=== PATIENT | female | born 1985 | race Caucasian/White ===

== ENCOUNTER 2023-06-25 09:21 | Emergency (ER) | payer MEDICARE, OTHER ==
[2023-06-25 09:39] VITALS: RESP 18; TEMP 98.3
--- NOTE | 2023-06-25 09:44 | ED ---
Fall HPI - General Stated Complaint: Fall Time Seen by Provider: 06/25/23 09:23 - History of Present Illness Initial Comments: The patient is a 38-year-old female with a history of alcohol abuse, opiate abuse and asthma who presents for pain after a fall last night. Patient was admitted to [facility] for alcohol and opiate rehab yesterday. She is on a Ativan regimen for withdrawals. She went to stand up out of her bed last night and her ankle locked causing her to fall forward. She hit the right frontal scalp on the ground but there is no loss consciousness. She has no hematoma or laceration noted. Patient continued to have pain in the head and her right foot and ankle this morning so was sent in for evaluation. She was given Ativan prior to arrival to emergency room. Patient has had an extensive surgery on the right ankle and foot in the past and has chronic pain from it. Patient is alert and oriented. She denies nausea vomiting or vision changes. She does not on any anticoagulation. Last drink was yesterday earlier in the day. - Related Data Allergies Allergy/AdvReac Type Severity Reaction Status Date / Time No Known Allergies Allergy Verified 06/25/23 09:36 Review of Systems ROS Statement: Those systems with pertinent positive or pertinent negative responses have been documented in the HPI. ROS Other: All systems not noted in ROS Statement are negative. General Exam - General Exam Comments Initial Comments: On my exam the patient's O2 sat is 95% on 3 L, which she she is on at home due to the "swelling and alcohol abuse". on reevaluation she is alert and oriented. I rechecked her neuro function and she is neurologically intact at this time. I did discussed admission plan with the patient due to the concern for a small cerebral hemorrhage. General appearance: alert, in no apparent distress Eye exam: Present: normal appearance, PERRL, EOMI, other (No obvious signs of trauma no hematomas noted no hemotympanum bilaterally. There is no lacerations. pupils are equal and reactive bilaterally. Negative for any Bell sign or raccoon eyes. ) Neck exam: Present: other (No tenderness on exam however C collar is in place. was removed after cleared) Respiratory exam: Present: normal lung sounds bilaterally Cardiovascular Exam: Present: normal rhythm, tachycardia GI/Abdominal exam: Present: soft Extremities exam: Present: full ROM Neurological exam: Present: alert, oriented X3 Psychiatric exam: Present: normal affect, normal mood Skin exam: Present: warm, dry Course Vital Signs 06/25/23 06/25/23 06/25/23 09:25 10:34 12:00 Temperature 98.3 F Pulse Rate 118 H 78 76 Respiratory 18 18 18 Rate Blood Pressure 125/81 122/74 126/78 O2 Sat by Pulse 87 L 99 99 Oximetry - Reevaluation(s) Reevaluation #1: 06/25/23 13:59 On my exam the patient's O2 sat is 95% on 3 L, which she she is on at home due to the "swelling and alcohol abuse". on reevaluation she is alert and oriented. I rechecked her neuro function and she is neurologically intact at this time. I did discussed admission plan with the patient due to the concern for a small cerebral hemorrhage. Reevaluation #2: 06/25/23 14:08 NIH is 0. see detailed documentation by nurse. Medical Decision Making - Medical Decision Making Was pt. sent in by a medical professional or institution (, PA, [employer], urgent care, hospital, or fdc...) When possible be specific @ -[No] Did you speak to anyone other than the patient for history (EMS, parent, family, police, friend...)? What history was obtained from this source @ -[No] Did you review nursing and triage notes (agree or disagree)? Why? @ -[I reviewed and agree with nursing and triage notes] Were old charts reviewed (outside hosp., previous admission, EMS record, old EKG, old radiological studies, urgent care reports/EKG's, fdc records)? Report findings @ -Yes old charts were reviewed Differential Diagnosis (chest pain, altered mental status, abdominal pain women, abdominal pain men, vaginal bleeding, weakness, fever, dyspnea, syncope, headache, dizziness, GI bleed, back pain, seizure, CVA, palpatations, mental health, musculoskeletal)? @ -Head injury without loss consciousness, hematoma, cerebral hemorrhage, C- spine fracture, C-spine sprain, right foot sprain, right ankle sprain, right foot fracture, right ankle fracture, fall EKG interpreted by me (3pts min.). @ -[As above] X-rays interpreted by me (1pt min.). @ -There are chronic changes to the right foot and ankle x-rays consistent with previous surgery, hardware appears to be in place in stable, no obvious fractures. CT interpreted by me (1pt min.). @ -No obvious fracture or deformity of the C-spine noted however there is a questionable cerebral hemorrhage just below the sophy on the head CT. There is no large hemorrhage noted no masses noted. Radiology report is pending for confirmation of this change and any other acute changes. U/S interpreted by me (1pt. min.). @ -[None done] What testing was considered but not performed or refused? (CT, X-rays, U/S, labs)? Why? @ -[None] What meds were considered but not given or refused? Why? @ -Patient was continued chest for something strong for pain even after she had been sleeping throughout her ER stay. I discussed with her that I would not be able to get any narcotic pain medication as she is drowsy, she has a history of abuse and we need to keep her stable with the concern for the hemorrhage and deterioration. She does understand this. Did you discuss the management of the patient with other professionals (professionals i.e. , PA, [employer], lab, RT, psych nurse, 7th grade social studies teacher, solid tire tuber machine operator, teacher, immigration officer, binder caser)? Give summary @ -I discussed patient's symptoms, CT results and transfer with attending physician Dr. James Was smoking cessation discussed for >3mins.? @ -[No] Was critical care preformed (if so, how long)? @ -[No] Were there social determinants of health that impacted care today? How? (Homelessness, low income, unemployed, alcoholism, drug addiction, transportation, low edu. Level, literacy, decrease access to med. care, halfway, rehab)? @ -Patient comes from alcohol and drug rehab and history of alcohol abuse with withdrawal. Was there de-escalation of care discussed even if they declined (Discuss DNR or withdrawal of care, Hospice)? DNR status @ -[No] What co-morbidities impacted this encounter? (DM, HTN, Smoking, COPD, CAD, Cance r, CVA, ARF, Chemo, Hep., AIDS, mental health diagnosis, sleep apnea, morbid obesity)? @ -Alcohol and drug abuse Was patient admitted / discharged? Hospital course, mention meds given and route, prescriptions, significant lab abnormalities, going to OR and other pertinent info. @ -Patient will be admitted to the hospital and transferred to [facility] for a suspected cerebral hemorrhage. She will require repeat head CT to further evaluate if this in fact is a hemorrhage and if it improves. The patient was accepted at [facility] with the ER and trauma team. Undiagnosed new problem with uncertain prognosis? @ -[No] Drug Therapy requiring intensive monitoring for toxicity (Heparin, Nitro, Insulin, Cardizem)? @ -[No] Were any procedures done? @ -[No] Diagnosis/symptom? @ -Fall, head injury, suspected cerebral hemorrhage, right foot and right ankle sprain, chronic pain Acute, or Chronic, or Acute on Chronic? @ -Acute Uncomplicated (without systemic symptoms) or Complicated (systemic symptoms)? @ -[default] Side effects of treatment? @ -[No] Exacerbation, Progression, or Severe Exacerbation? @ -[No] Poses a threat to life or bodily function? How? (Chest pain, USA, NM, pneumonia, PE, COPD, DKA, ARF, appy, cholecystitis, CVA, Diverticulitis, Homicidal, Suicidal, threat to staff... and all critical care pts) @ -[No] - Radiology Data Radiology results: report reviewed, image reviewed Disposition Clinical Impression: Fall, Cerebral hemorrhage, Alcohol abuse, Alcohol withdrawal, Chronic pain, Foot sprain, Ankle sprain Disposition: DC/TRNS INTERMEDIATE CARE FAC Condition: Fair Is patient prescribed a controlled substance at d/c from ED?: No Referrals: None,Stated [Primary Care Provider] - 1-2 days Decision to Admit Reason: Admit from EC Decision Date: 06/25/23 Decision Time: 14:04 (Patient will be transferred to [facility] for further observation and evaluation of the suspected cerebral hemorrhage.) - Out of Hospital Transfer - Req. Specs Out of Hospital Transfer - Requested Specifics: Neurological ICU (neurosurgery, trauma transfer for cerebral hemorrhage)
[2023-06-25] MEDS ORDERED: ACETAMINOPHEN TAB 325 MG TAB PO STA (10:28)
--- NOTE | 2023-06-25 10:28 | XR ---
3 views right ankle and 3 views right foot. DATE: 06/25/2023. COMPARISON: None available. Clinical history: Pain and swelling from fall. IMPRESSION: There is extensive surgical changes seen around the ankle and foot with a side plate and screws along the distal tibia along its medial aspect. Multiple surgical screws are also seen with subtalar fusio n. There is no acute fracture. Moderate to significant degenerative changes are seen in the tibiotalar compartment most prominent al cornelius its medial aspect. Scattered degenerative changes are also seen throughout the tarsal bones. A well-corticated ossific density seen along the dorsal aspect of the talus is likely related to prio r trauma.
--- NOTE | 2023-06-25 13:11 | CT ---
EXAMINATION TYPE: CT brain federico choi con DATE OF EXAM: 06/25/2023 COMPARISON: None HISTORY: Fall, pain CT DLP: 1624.2 mGycm Automated exposure control for dose reduction was used. TECHNIQUE: CT scan of the head and cervical spine are performed without contrast. FINDINGS: There is no acute intracranial hemorrhage, mass effect, or midline shift identified. The ventricles and sulci are within normal limits in size. The globes are intact and the visualized sin uses are clear. There is soft tissue edema along the posterior occiput and parietal lobe. Area of low attenuation involving the temporal related to partial volume averaging. Evaluation cervical spine Limited. There is faint increased attenuation involving. Loss of normal cervical lordosis kyphosis. There is anterior listhesis C3-4, C4-5. No acute fracture. Assessment for spinal canal limited due to artifact and resolution chronic rib fracture noted on the right. Groundglass changes involving the lung apices may be in the basis of respiratory motion. IMPRESSION: 1. There is no acute fracture or dislocation evident in the cervical spine. 2. There is faint hyperdensity overlying the sophy on the left. Cannot exclude a acute 1 cm hemorrhage on this exam. Consider follow-up MRI. Reports called to the referring clinician..
[2023-06-25 13:44] LABS: Basophils % (A) 0 %; Eosinophils # (A) 0.1 k/uL (0-0.7); Eosinophils % (A) 1 %; HCT 34.4 % (34.0-46.0); HGB 11.2 gm/dL (11.4-16.0); Lymphocytes # (A) 0.7 k/uL (1.0-4.8); Lymphocytes % (A) 5 %; MCH 34.8 pg (25.0-35.0); MCHC 32.5 g/dL (31.0-37.0); Macrocytosis Marked; Mean Platelet Volume 8.6; Monocytes # (A) 0.7 k/uL (0-1.0); Monocytes % (A) 5 %; Neutrophils # (A) 11.7 k/uL (1.3-7.7); Neutrophils % (A) 89 %; RBC 3.22 m/uL (3.80-5.40); RDW 15.3 % (11.5-15.5); WBC 13.2 k/uL (3.8-10.6)
[2023-06-25 13:52] LABS: INR 1.4 (<1.2); Prothrombin Time 14.5 sec (9.0-12.0)
[2023-06-25 13:53] LABS: ALT 31 U/L (4-34); African American GFR (CKD) 89 (>60 ml/min/1.73 sqM); Albumin 4.1 g/dL (3.5-5.0); Anion Gap 9 mmol/L; Blood Urea Nitrogen 6 mg/dL (7-17); Calcium 9.5 mg/dL (8.4-10.2); Carbon Dioxide 28 mmol/L (22-30); Chloride 102 mmol/L (98-107); Glucose 109 mg/dL (74-99); Non-African American GFR(CKD) 77 (>60 ml/min/1.73 sqM); Sodium 139 mmol/L (137-145); Total Bilirubin 3.6 mg/dL (0.2-1.3); Total Protein 9.3 g/dL (6.3-8.2)
[2023-06-25 13:54] LABS: AST 124 U/L (14-36); Alkaline Phosphatase 152 U/L (38-126); Potassium 4.8 mmol/L (3.5-5.1)
[2023-06-25 14:17] LABS: Platelet Count 54 k/uL (150-450)
[2023-06-25 14:20] LABS: Rouleaux Present
[2023-06-25 14:59] VITALS: BP 148/84; PULSE 78
== END 2023-06-25 14:58 ==
LOC: EC 09:21
DX: S93.401A Sprain of unspecified ligament of right ankle, initial encounter (principal); S93.601A Unspecified sprain of right foot, initial encounter; S06.9X0A Unspecified intracranial injury without loss of consciousness, initial encounter; F10.139 Alcohol abuse with withdrawal, unspecified; J45.909 Unspecified asthma, uncomplicated; W06.XXXA Fall from bed, initial encounter
CPT/HCPCS: 36415; 70450; 72125; 80053; 82075; 85025; 85610; 85730; 99285

== ENCOUNTER 2025-04-02 10:12 | Emergency (ER) | payer MEDICARE, OTHER ==
[2025-04-02 10:23] VITALS: BP 114/73; PULSE 93; RESP 18; TEMP 98.2
--- NOTE | 2025-04-02 10:31 | ED ---
General Adult HPI - General Chief complaint: Extremity Injury, Lower Stated complaint: fall Time Seen by Provider: 04/02/25 10:30 Source: patient, EMS, RN notes reviewed Mode of arrival: EMS Limitations: no limitations - History of Present Illness Initial comments: 39-year-old female presented to the ER for evaluation of fall. Patient currently residing at [facility] for alcohol abuse. She states prior to entering rehabilitation she injured her right ankle. She is using a knee scooter to ambulate. She states while attempting to cross the [place] at [facility] her scooter accidentally caught on evening sidewalk causing her to fall off the side of the scooter. Patient denies head injury, loss of consciousness or blood thinner use. Patient states she was approximately 1.5ft fall to ground. She reports abrasions to right knee and right wrist minimal pain to these.She reports abrasions to right knee and right wrist. Patient states sh e was forced to come for evaluation or she would be kicked out of the program. Patient denies any limited range of motion, paresthesias or other injuries. Tetanus up-to-date. - Related Data Allergies Allergy/AdvReac Type Severity Reaction Status Date / Time No Known Allergies Allergy Verified 04/02/25 10:23 Review of Systems ROS Statement: Those systems with pertinent positive or pertinent negative responses have been documented in the HPI. ROS Other: All systems not noted in ROS Statement are negative. Past Medical History Past Medical History: Asthma, GERD/Reflux, Hypertension History of Any Multi-Drug Resistant Organisms: None Reported Past Surgical History: Orthopedic Surgery Additional Past Surgical History / Comment(s): right foot surgery X9, Past Psychological History: No Psychological Hx Reported Smoking Status: Current every day smoker Past Alcohol Use History: Abuse, Daily Past Drug Use History: Opiates General Exam Limitations: no limitations General appearance: alert, in no apparent distress Head exam: Present: atraumatic, normocephalic, normal inspection Eye exam: Present: normal appearance, PERRL, EOMI. Absent: scleral icterus, conjunctival injection, periorbital swelling Pupils: Present: normal accommodation ENT exam: Present: normal exam, normal oropharynx, mucous membranes moist Neck exam: Present: normal inspection. Absent: tenderness, meningismus, lymphadenopathy Respiratory exam: Present: normal lung sounds bilaterally. Absent: respiratory distress, wheezes, rales, rhonchi, stridor Cardiovascular Exam: Present: regular rate, normal rhythm, normal heart sounds. Absent: systolic murmur, diastolic murmur, rubs, gallop, clicks Extremities exam: Present: normal inspection, full ROM, normal capillary refill (2+ bilateral radial pulses. Left DP pulse 2+. Right ankle and short leg boot. Brisk cap refill right toes). Absent: tenderness, pedal edema, joint swelling, calf tenderness Neurological exam: Present: alert, oriented X3, CN II-XII intact Skin exam: Present: warm, dry, intact, normal color, abrasion (Anterior right knee. Right elbow.). Absent: rash Course Vital Signs 04/02/25 10:13 Temperature 98.2 F Pulse Rate 93 Respiratory 18 Rate Blood Pressure 114/73 O2 Sat by Pulse 98 Oximetry Medical Decision Making - Medical Decision Making Was pt. sent in by a medical professional or institution (, PA, CREDIT RISK MANAGER, urgent care, hospital, or senior care...) When possible be specific @ -Patient presents from [facility] for evaluation of fall. Did you speak to anyone other than the patient for history (EMS, parent, family, police, friend...)? What history was obtained from this source @ -No Did you review nursing and triage notes (agree or disagree)? Why? @ -I reviewed and agree with nursing and triage notes Were old charts reviewed (outside hosp., previous admission, EMS record, old EKG, old radiological studies, urgent care reports/EKG's, senior care records)? Report findings @ -No old charts were reviewed Differential Diagnosis (chest pain, altered mental status, abdominal pain women, abdominal pain men, vaginal bleeding, weakness, fever, dyspnea, syncope, headache, dizziness, GI bleed, back pain, seizure, CVA, palpatations, mental health, musculoskeletal)? @ -Fracture, dislocation, contusion, hematoma, intracranial hemorrhage, concussion, abrasion, laceration this list does not like to be all-inclusive EKG interpreted by me (3pts min.). @ -As above X-rays interpreted by me (1pt min.). @ -None done CT interpreted by me (1pt min.). @ -None done U/S interpreted by me (1pt. min.). @ -None done What testing was considered but not performed or refused? (CT, X-rays, U/S, labs)? Why? @ -None What meds were considered but not given or refused? Why? @ -None Did you discuss the management of the patient with other professionals (professionals i.e. , PA, CREDIT RISK MANAGER, lab, RT, psych nurse, high school social studies tutor, television producer, teacher, medical officer psychiatry, protective services case worker)? Give summary @ -No Was smoking cessation discussed for >3mins.? @ -No Was critical care preformed (if so, how long)? @ -No Were there social determinants of health that impacted care today? How? (Homelessness, low income, unemployed, alcoholism, drug addiction, transportation, low edu. Level, literacy, decrease access to med. care, fpc, rehab)? @ -Patient currently residing at [facility] for alcohol abuse. Was there de-escalation of care discussed even if they declined (Discuss DNR or withdrawal of care, Hospice)? DNR status @ -No What co-morbidities impacted this encounter? (DM, HTN, Smoking, COPD, CAD, Cancer, CVA, ARF, Chemo, Hep., AIDS, mental health diagnosis, sleep apnea, morbid obesity)? @ -None Was patient admitted / discharged? Hospital course, mention meds given and route, prescriptions, significant lab abnormalities, going to OR and other pertinent info. @ -Discharge. 39-year-old female presented the ER for evaluation of fall. Patient presenting from [facility]. Vital signs stable. Patient is neurovascularly intact. There are multiple abrasions noted to left forearm and knee. There is no active bleeding. Patient has full active range of motion with no focal bony tenderness. Short leg cast noted to right ankle. Patient denied head injury, loss conscious or blood thinner use. Patient reporting minimal to no pain at this time. She will be provided with p.o. ibuprofen. I do not believe imaging is indicated at this time given mechanism of injury and physical exam findings, patient is agreeable. Tetanus is up-to-date, per patient. Patient will be discharged back to [facility] in stable condition advised follow-up with PCP. Conservative treatment options discussed. Patient verbally expressed understanding agree with care plan. Case discussed with ED attending, Dr. Veras. Undiagnosed new problem with uncertain prognosis? @ -No Drug Therapy requiring intensive monitoring for toxicity (Heparin, Nitro, Insulin, Cardizem)? @ -No Were any procedures done? @ -No Diagnosis/symptom? @ -Abrasion/fall Acute, or Chronic, or Acute on Chronic? @ -Acute Uncomplicated (without systemic symptoms) or Complicated (systemic symptoms)? @ -Uncomplicated Side effects of treatment? @ -No Exacerbation, Progression, or Severe Exacerbation? @ -No Poses a threat to life or bodily function? How? (Chest pain, USA, CT, pneumonia, PE, COPD, DKA, ARF, appy, cholecystitis, CVA, Diverticulitis, Homicidal, Suicidal, threat to staff... and all critical care pts) @ -No Disposition Clinical Impression: Multiple abrasions, Fall Disposition: HOME SELF-CARE Condition: Stable Additional Instructions: Continue [id number] ibuprofen and Tylenol for pain control. Return to the ER for any new or worsening concerns Is patient prescribed a controlled substance at d/c from ED?: No Referrals: None,Stated [Primary Care Provider] - 1-2 days Time of Disposition: 10:42
[2025-04-02] MEDS: IBUPROFEN 600 MG TAB PO STA (10:44)
== END 2025-04-02 10:56 | disposition home or self-care (01) ==
LOC: EC 10:12
DX: S80.211A Abrasion, right knee, initial encounter (principal); S60.811A Abrasion of right wrist, initial encounter; F17.200 Nicotine dependence, unspecified, uncomplicated; W19.XXXA Unspecified fall, initial encounter
CPT/HCPCS: 99284